=== PATIENT | female | born 1980 | race Caucasian/White ===

== ENCOUNTER → 2020-03-10 | Day surgery (SDC) | payer BC ==
[~2020-03-10] VITALS: Ht 167.6 cm; Wt 63.5 kg
[2020-03-10] VITALS (10 sets, daily range): BP systolic 79–145; BP diastolic 44–112
[~2020-03-10] MED LIST: LAMICTAL25 MG ORAL; LR 1000ml ONE; Lidocaine 1% MPF 10mg/ml 5ml ONE; Midazolam 2mg/2ml Inj ONE; NAC600 MG PO; OMEGA 3 1,0001 EACH PO; OMEPRAZOLE20 M2 ORAL; VITAMIN B122500 MCG PO; VITAMIN C500 M1 ORAL; [UNRECOGNIZED DRUG - OTHER] PO
--- NOTE | 2020-03-10 09:24 | Pre-Procedure Note/Attestation ---
Pre-Procedure Note/Attestation Complete Prior to Procedure Planned Procedure: not applicable Procedure Narrative: egd Indications for Procedure Pre-Operative Diagnosis: chest pain GERD Attestation I attest that I discussed the nature of the procedure; its benefits; risks and complications; and alternatives (and the risks and benefits of such alternatives), prior to the procedure, with the patient (or the patient's legal order entry representative). I attest that, if there was a reasonable possibility of needing a blood trans fusion, the patient (or the patient's legal order entry representative) was given the [facility] standardized written summary, pursuant to the [place] Blood Safety Act ([place] Health and Safety Code # 1645, as amended). I attest that I re-evaluated the patient just prior to the surgery and that there has been no change in the patient's H&P, except as documented below: Ky Thomas MD Mar 10, 2020 09:24
--- NOTE | 2020-03-10 09:25 | Short Stay Surgery H&P ---
History of Present Illness History of Present Illness Chief Complaint see H&P HPI Juliann Martinez is a 39 year old female who was admitted on for Abdominal Pain Patient History Allergies: Uncoded Allergies: ANTIBIOTICS (Allergy, Severe, SOB, 03/10/20) "ALLERGIC TO SOME ANTIBIOTICS -THROAT CLOSES UP, SOB Medication History Scheduled Acetylcysteine (Nac), 600 MG PO DAILY, (Reported) Ascorbic Acid* (Vitamin C*), 1,000 MG ORAL TWICE A DAY, (Reported) Cyanocobalamin (Vitamin B-12) (Vitamin B12), 1,000 MCG PO DAILY, (Reported) Lamotrigine* (Lamictal*), 25 MG ORAL DAILY, (Reported) Tynan-3 Fatty Acids/Fish Oil (Tynan 3 1,000 Mg Softgel), 1 EACH PO DAILY, (Reported) Omeprazole (Omeprazole), 20 MG ORAL DAILY, (Reported) [stress factors], 2 CAP PO DAILY, (Reported) Physical Exam Vital Signs Last Vital Signs Date Time Temp Pulse Resp B/P (MAP) Pulse Ox O2 Delivery O2 Flow Rate FiO2 03/10/20 09:13 Room Air 03/10/20 09:11 98.2 98 20 116/75 100 Labs Laboratory Tests Test 03/10/20 08:55 Urine HCG, Qualitative Negative (NEGATIVE) Plan Attestation Are the patient's medical conditions optimized for surgery? Ky Thomas MD Mar 10, 2020 09:25
--- NOTE | 2020-03-10 09:41 | Endoscopy Procedure Note ---
Endoscopy Procedure Note General Indication for Procedure: cp gerd Procedures Performed: EGD Operative Findings/Diagnosis: normal Specimen: yes Pt Tolerated Procedure Well: Yes Estimated Blood Loss: none Anesthesia Anesthesiologist: see notes Anesthesia: MAC Medications Medication Given: see anesthesia record Inserted Devices Implant(s) used?: No GI Core Measures 50 yrs or older w/o bx or poly: Not Applicable 10yrs. F/U recommended: Not Applicable Ky Thomas MD Mar 10, 2020 09:41
--- NOTE | 2020-03-10 09:42 | Brief Operative Note ---
Immediate Post Operative Note Operative Note Chief Complaint: claudia Pre-op Diagnosis: chest pain GERD Specimen: yes Complications: none Fluids: per anesthesia Implant(s) used?: No Ky Thomas MD Mar 10, 2020 09:42
--- NOTE | 2020-03-10 09:46 | Immediate Post-Op Evaluation ---
Immediate Post-Op Evalulation Immediate Post-Op Evalulation Procedure: EGD Date of Evaluation: Mar 10, 2020 Time of Evaluation: 09:46 IV Fluids: 500 Blood Pressure Systolic: 101 Blood Pressure Diastolic: 64 Pulse Rate: 69 Respiratory Rate: 14 O2 Sat by Pulse Oximetry: 98 Temperature (Fahrenheit): 97.4 Nausea: No Vomiting: No Complications none Patient Status: awake, reacts, patent Hydration Status: adequate Drug: none Vilma Akhtar CRNA Mar 10, 2020 09:46
--- NOTE | 2020-03-10 09:48 | Anethesia Preoperative Eval ---
Anesthesia Pre-op PMH/ROS General Date of Evaluation: Mar 10, 2020 Time of Evaluation: 09:20 Anesthesiologist: kaylynn ASA Score: ASA 2 Mallampati Score Class I : Soft palate, uvula, fauces, pillars visible Class II: Soft palate, uvula, fauces visible Class III: Soft palate, base of uvula visible Class IV: Only hard plate visible Mallampati Classification: Class II Surgeon: patt Diagnosis: GERD Surgical Procedure: EGD Anesthesia History: none Family History: no anesthesia problems Allergies: Uncoded Allergies: ANTIBIOTICS (Allergy, Severe, SOB, 03/10/20) "ALLERGIC TO SOME ANTIBIOTICS -THROAT CLOSES UP, SOB Medications: see eMAR Patient NPO?: Yes NPO Date: Mar 10, 2020 NPO Time: 00:01 Past Medical History Cardiovascular: Denies: HTN, CAD, [place], valve dz, arrhythmia, other Pulmonary: Denies: asthma, COPD, REYES, other Gastrointestinal/Genitourinary: Reports: GERD; Denies: CRI, ESRD, other Neurologic/Psychiatric: Reports: depression/anxiety; Denies: dementia, CVA, TIA, other Endocrine: Denies: DM, hypothyroidism, steroids, other HEENT: Denies: cataract (L), cataract (R), glaucoma, PAIMIUT (L), PAIMIUT (R), other Hematology/Immune: Denies: anemia, DVT, bleeding disorder, other Anesthesia Pre-op Phys. Exam Physician Exam Last Vital Signs Date Time Temp Pulse Resp B/P (MAP) Pulse Ox O2 Delivery O2 Flow Rate FiO2 03/10/20 09:13 Room Air 03/10/20 09:11 98.2 98 20 116/75 100 Constitutional: NAD Neurologic: CN 2-12 intact Cardiovascular: RRR Respiratory: CTA Gastrointestinal: S/NT/ND Airway Exam Mallampati Classification 2 Mallampati Score: Class II MO: full ROM: full Dentures: no upper, no lower Anesthesia Pre-op A/P Labs Urine Test Test 03/10/20 08:55 Urine HCG, Qualitative Negative (NEGATIVE) Studies Pre-op Studies: EKG - SR Risk Assessment & Plan Assessment: COVID neg Plan: MAC Status Change Before Surgery: No Pre-Antibiotics Drug: none Vilma Akhtar CRNA Mar 10, 2020 09:48
--- NOTE | 2020-03-10 10:57 | 48 Hour Post Anesthesia Eval ---
Post Anesthesia Evaluation Procedure: EGD Date of Evaluation: Mar 10, 2020 Time of Evaluation: 10:56 Blood Pressure Systolic: 107 0: 65 Pulse Rate: 75 Respiratory Rate: 14 O2 Sat by Pulse Oximetry: 98 Airway: patent Nausea: No Vomiting: No Hydration Status: adequate Cardiopulmonary Status: stable Mental Status/LOC: patient returned to baseline Follow-up Care/Observations: na Post-Anesthesia Complications: none Follow-up care needed: N/A Vilma Akhtar CRNA Mar 10, 2020 10:57
--- NOTE | 2020-03-10 16:45 | Operative Note - Dictated ---
DATE OF OPERATION: 03/10/2020 GASTROENTEROLOGY PROCEDURE REPORT PROCEDURE: Upper gastrointestinal endoscopy with biopsy. SURGEON: Ky Thomas MD ANESTHESIA: Please see the separate anesthesiologist notes for details. PRE-ENDOSCOPIC DIAGNOSES: Chest pain and pyrosis secondary to gastroesophageal reflux versus eosinophilic esophagitis versus other pathology. POST-ENDOSCOPIC DIAGNOSIS: Normal upper endoscopy. Status post random biopsies of mid esophagus, lower esophagus, and antrum. DESCRIPTION OF PROCEDURE: The procedure, its risks, indications, alternatives, and possible complications were explained to the patient and an informed consent was obtained. The patient was then sedated in the left lateral decubitus position and a diagnostic upper endoscope was introduced through oropharynx and advanced to the duodenum. The endoscope was then gradually withdrawn and the mucosa examined carefully. Examination of the upper gastrointestinal mucosa did not reveal any abnormalities. Random biopsies of the antrum, lower esophagus, and mid esophagus were sent to pathology for review. The endoscope was removed. The patient was sent to recovery in good condition. COMPLICATIONS: None. RECOMMENDATIONS: 1. Resume oral diet. 2. Continue proton pump inhibitor. 3. Follow up biopsy results. 4. Outpatient followup. Thank you for asking me to participate in the care of this patient. Ky Thomas M.D. DR: MELBA JOB#: [id number] CC: Poli Morrison M.D.; Fax#: [phone]
== END | disposition home or self-care (01) ==
LOC: GAS 08:46
DX: R07.9 Chest pain, unspecified (principal); R12 Heartburn; K22.9 Disease of esophagus, unspecified; Z79.899 Other long term (current) drug therapy; Z88.1 Allergy status to other antibiotic agents; K21.9 Gastro-esophageal reflux disease without esophagitis; F32.9 Major depressive disorder, single episode, unspecified; F41.9 Anxiety disorder, unspecified
CPT/HCPCS: 43239; 81025; 94003; J2250; J2704; J7120; U0002; 94150